=== PATIENT | female | born 1985 | race African-American/Black ===

== ENCOUNTER → 2023-07-16 | Emergency (ER) | payer OTHER ==
[~2023-07-16] MED LIST: ACETAMINOPHEN 500 MG TAB ONE
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
[2023-07-17 04:10] VITALS: BP 141/82; TEMP 97.5; O2SAT 99
== END ==
LOC: ER 19:38
DX: S00.83XA Contusion of other part of head, initial encounter (principal); V49.40XA Driver injured in collision with unspecified motor vehicles in traffic accident, initial encounter
CPT/HCPCS: 70450; 70486; 72125; 76377; 99284